=== PATIENT | female | born 1980 | race Caucasian/White ===

== ENCOUNTER 2018-01-28 21:00 | Outpatient (CLI) | payer OTHER ==
[~2018-01-28 21:00] MED LIST: IBUPROFEN800 MG PO; PERCOCET 10/3251 TA1 PO; PRINIVIL20 MG PO
== END 2018-01-28 23:59 | disposition home or self-care (01) ==
LOC: D.MAMMO 21:00
DX: N64.52 Nipple discharge (principal)

== ENCOUNTER 2018-12-31 05:10 | Day surgery (SDC) | payer OTHER ==
[2018-12-30 15:43] LABS: HEMATOCRIT 40.1 % (36.0-48.0); HEMOGLOBIN 13.5 g/dL (12-16); MCH 29.3 pg (26.0-34.0); MCHC 33.7 g/dL (31.0-37.0); MCV 87.2 fL (80.0-100.0); MEAN PLATELET VOLUME 10.6 fL (7.4-10.4); RBC 4.6 10x6/uL (4.00-5.40); RDW 15.1 % (11.5-14.5); WBC 9.9 10x3/uL (4.8-10.8)
[~2018-12-31] VITALS: Ht 154.9 cm; Wt 81.6 kg
[~2018-12-31 05:10] MED LIST changes: +CYCLOBENZAPRINE10 MG; +HYDROCODONE-A1 UDTA2
[2018-12-31 05:51] LABS: HCG URINE NEGATIVE (NEGATIVE)
[2018-12-31 06:04] VITALS: BP 126/77; Ht 154.9 cm; Wt 81.6 kg
[2018-12-31] MEDS ORDERED: VISTARIL50 MG PO (08:30)
[2018-12-31] MEDS ORDERED: PERCOCET 10-321 EAC1 PO (08:30)
--- NOTE | 2018-12-31 10:23 | NUR ---
DC INSTRUCTIONS GIVEN TO PT/FAMILY. STATE UNDERSTANDING. DC'D IV CATH FULLY INTACT. PT LEFT UNIT VIA WC AT 1020
--- NOTE | 2018-12-31 11:04 | OP ---
PATIENT NAME: KERA FOSTER MEDICAL RECORD: [id number] :80 LOCATION:[facility] ADMISSION DATE: SURGEON: BENJAMIN JACQUES DO DATE OF OPERATION: 12/31/2018 PROCEDURE PERFORMED: Left shoulder arthroscopy with biceps tenodesis, labral debridement, subacromial decompression, distal clavicle excision. PREOPERATIVE DIAGNOSES: Left shoulder superior labrum anterior and posterior tear, subacromial impingement and acromioclavicular joint arthritis. POSTOPERATIVE DIAGNOSES: Left shoulder superior labrum anterior and posterior tear, subacromial impingement and acromioclavicular joint arthritis. INDICATIONS: Ms. Foster is a 38-year-old female who has complained of left shoulder pain for 6 months or more. She has tried all manner of nonoperative treatment. She had an MRI, which demonstrated a labral tear, AC joint arthritis and some impingement. She was tired of dealing with the pain and wanted something done to treat it. She saw my nurse practitioner in the office and she was informed that we can do a biceps tenodesis, labral debridement, distal clavicle excision, and subacromial decompression. She was okay with that. I informed her before the surgery today we will do that and I would look at the rotator cuff and see if it is torn. If it were, I would fix it. She would be at risk for infection, bleeding, damage to nerves and vessels, need for further surgery, continued pain, blood clots, and even . She was okay with that and signed the consent. SURGEON: Benjamin Jacques DO DESCRIPTION OF PROCEDURE: The patient was taken to the operative suite, laid in the right lateral decubitus position. She was with the left shoulder up with an axillary roll placed under the axilla on the right. She was positioned well. The left shoulder was prepped and draped in sterile fashion. She had been sedated and LMA was placed. After the left shoulder had been prepped and draped, timeout was performed, everyone was in agreement with correct side, site, patient and procedure. The procedure then began with insufflating the shoulder joint with 60 mL of normal saline through an 18-gauge spinal needle and a posterior portal. This was then removed and then an 11-blade scalpel was used to establish the posterior portal. Trocar was entered in the shoulder joint. The shoulder joint was inspected. Then, the SLAP tear was seen. Subscap looked good and the supraspinatus, infraspinatus looked good and there were no loose bodies in the inferior gutter. The cartilage looked good as well. Anterior portal was then established with an 18-gauge spinal needle and 11-blade scalpel. The probe was brought in and the SLAP tear was exposed noting a SLAP tear at the anterior portion to the posterior portion of the labrum. The burner was then brought in and biceps tenotomy was done as well as the labral debridement. We then switched the trocar to the subacromial space. Subacromial decompression was done with the acromioplasty and a distal clavicle excision opened up the AC joint, approximately 7 mm. A bursectomy was then performed as well. The rotator cuff was inspected on the bursal side. No tears were seen on the rotator cuff. This was then removed. All the instruments from lateral portal had been established with an 18-gauge spinal needle and 11-blade scalpel prior to this subacromial decompression, distal clavicle excision, and acromioplasty. A small incision was made on the anterior humerus. Careful dissection was made down to the long head of the bicep tendon. This was brought out through the OPERATIVE REPORT [id number] KERA FOSTER incision, whipstitched, and then a button was placed on a unicortical hole. This hole was placed in the humerus and the button was flipped inside the cortex of the humerus. It was then cinched down and tied and a free needle was used to go through the tendon and this was tied down. The excess suture and tendon were cut at that time and the site was thoroughly irrigated. The site was closed with 2-0 Vicryl in inverted interrupted fashion, 4-0 Monocryl ran on the skin. Each of the portal sites were closed with 4-0 Monocryl in an inverted interrupted fashion. Dermabond was placed on all the incisions. I was assisted by Wilfred Young, advanced nurse practitioner. He assisted with closing and retracting and the patient was then awakened and taken to recovery in stable condition. BLOOD LOSS: Minimal. COMPLICATION: None. TRANSINT:[id number] Voice Confirmation ID: [id number] DOCUMENT ID: [id number] BENJAMIN JACQUES DO at 1104 CC: [id number] DICTATION DATE: 12/31/18 0836 DIRECT CUSTOMER SERVICE REPRESENTATIVE: 12/31/18 1054 [facility] 12/31/18 [id number] [place] [address]
== END 2018-12-31 10:20 | disposition home or self-care (01) ==
LOC: D.OPS 05:10 → D.PAN 07:00 → D.OPS 07:00
PROVIDERS: Anesthesiology; ATTEND Orthopaedic Surgery
DX: S43.432A Superior glenoid labrum lesion of left shoulder, initial encounter (principal); M75.42 Impingement syndrome of left shoulder; M13.812 Other specified arthritis, left shoulder; Z01.812 Encounter for preprocedural laboratory examination

== ENCOUNTER 2019-01-30 08:00 | Outpatient (CLI) | payer OTHER ==
[2018-12-31 06:04] VITALS: BMI 34.0
[~2019-01-30 08:00] MED LIST changes: +PERCOCET 10-321 EAC1 PO; +VISTARIL50 MG PO
== END 2019-01-30 23:59 | disposition home or self-care (01) ==
LOC: D.MAMMO 08:00
PROVIDERS: ATTEND Emergency Medicine
DX: Z12.31 Encounter for screening mammogram for malignant neoplasm of breast (principal)